=== PATIENT | male | born 1970 | race Caucasian/White ===

== ENCOUNTER 2018-11-26 09:34 | Outpatient (REF) | payer OTHER, SELFPAY ==
[2018-11-26 22:12] LABS: Cholesterol 267 mg/dL (50-200); HDL Cholesterol 75 mg/dL (40-60); LDL CHOLESTEROL 157 mg/dL (<100); Triglyceride 58 mg/dL (30-150)
== END 2018-11-26 09:54 ==
LOC: NCHCN 09:34
PROVIDERS: PCP Internal Medicine; Visit Provider Internal Medicine
DX: E78.5 Hyperlipidemia, unspecified (principal)
CPT/HCPCS: 80061; 83721

== ENCOUNTER 2020-09-01 16:10 | Outpatient (REF) | payer OTHER, SELFPAY ==
[2020-09-01 14:02] LABS: Anion Gap 8.7 mmol/L (3-11); BUN 19 mg/dL (7-18); CO2 26.3 mmol/L (21.0-32.0); CREATININE 1.1 mg/dL (0.70-1.30); Calcium 9.6 mg/dL (8.5-10.1); Calculated LDL 171 mg/dL (<100); Chloride 105 mmol/L (98-107); Cholesterol 271 mg/dL (<200); Glucose 90 mg/dL (74-106); HDL Cholesterol 87 mg/dL (40-60); Potassium 4.5 mmol/L (3.5-5.1); Sodium 140 mmol/L (136-145); Triglyceride 65 mg/dL (<150)
== END 2020-09-01 16:11 | disposition home or self-care (01) ==
LOC: NCHCN 16:10
PROVIDERS: PCP Internal Medicine; Visit Provider Internal Medicine
DX: E78.5 Hyperlipidemia, unspecified (principal); Z82.49 Family history of ischemic heart disease and other diseases of the circulatory system
CPT/HCPCS: 80048; 80061

== ENCOUNTER 2021-11-01 19:49 | Outpatient (REF) | payer OTHER, SELFPAY ==
[2021-11-01 21:51] LABS: Anion Gap 7.4 mmol/L (3-11); BUN 15 mg/dL (7-18); CO2 29.6 mmol/L (21.0-32.0); Calcium 9.1 mg/dL (8.5-10.1); Calculated LDL 183 mg/dL (<100); Chloride 104 mmol/L (98-107); Cholesterol 301 mg/dL (<200); Glucose 101 mg/dL (74-106); HDL Cholesterol 79 mg/dL (40-60); Potassium 4.1 mmol/L (3.5-5.1); Sodium 141 mmol/L (136-145); Triglyceride 197 mg/dL (<150)
== END 2021-11-01 19:50 | disposition home or self-care (01) ==
LOC: NCHCN 19:49
PROVIDERS: PCP Internal Medicine; Visit Provider Internal Medicine
DX: E78.5 Hyperlipidemia, unspecified (principal); R03.0 Elevated blood-pressure reading, without diagnosis of hypertension
CPT/HCPCS: 80048; 80061

== ENCOUNTER 2022-06-16 12:14 | Outpatient (REF) | payer OTHER, SELFPAY ==
[2022-06-16 14:19] LABS: ALT 30 U/L (16-63); AST 36 U/L (15-37); Alkaline Phosphatase 83 U/L (46-116); Anion Gap 7.2 mmol/L (3-11); BUN 17 mg/dL (7-18); Bilirubin, Total 0.3 mg/dL (0.2-1.0); CO2 28.8 mmol/L (21.0-32.0); Calcium 9.4 mg/dL (8.5-10.1); Calculated LDL 98 mg/dL (<100); Chloride 103 mmol/L (98-107); Cholesterol 199 mg/dL (<200); Estimated GFR 91.12 (mL/min/1.73m2); Glucose 97 mg/dL (74-106); HDL Cholesterol 88 mg/dL (40-60); Potassium 4.3 mmol/L (3.5-5.1); Sodium 139 mmol/L (136-145); Total Protein 7.4 g/dL (6.4-8.2); Triglyceride 66 mg/dL (<150)
[2022-06-16 21:32] LABS: PSA, Screening 0.8 ng/mL (<=3.5)
== END 2022-06-16 12:15 | disposition home or self-care (01) ==
LOC: NCHCN 12:14
PROVIDERS: PCP Internal Medicine; Visit Provider Family Medicine
DX: Z00.00 Encounter for general adult medical examination without abnormal findings (principal); Z12.5 Encounter for screening for malignant neoplasm of prostate; E78.5 Hyperlipidemia, unspecified; R03.0 Elevated blood-pressure reading, without diagnosis of hypertension
CPT/HCPCS: 80053; 80061; 84153

== ENCOUNTER 2023-02-21 09:51 | Outpatient (REF) | payer BC, SELFPAY ==
[2023-02-21 17:46] LABS: ALT 31 U/L (16-63); AST 36 U/L (15-37); Albumin 4.1 g/dL (3.4-5.0); Alkaline Phosphatase 79 U/L (46-116); Anion Gap 7.2 mmol/L (3-11); BUN 20 mg/dL (7-18); Bilirubin, Total 0.7 mg/dL (0.2-1.0); CO2 27.8 mmol/L (21.0-32.0); Calcium 9.5 mg/dL (8.5-10.1); Calculated LDL 92 mg/dL (<100); Chloride 101 mmol/L (98-107); Cholesterol 192 mg/dL (<200); Estimated GFR 90.56 (mL/min/1.73m2); Glucose 88 mg/dL (74-106); HDL Cholesterol 87 mg/dL (40-60); Potassium 4.2 mmol/L (3.5-5.1); Sodium 136 mmol/L (136-145); Total Protein 7.3 g/dL (6.4-8.2); Triglyceride 65 mg/dL (<150)
== END 2023-02-21 09:52 | disposition home or self-care (01) ==
LOC: NCHCN 09:51
PROVIDERS: PCP Internal Medicine; Visit Provider Family Medicine
DX: Z00.00 Encounter for general adult medical examination without abnormal findings (principal)
CPT/HCPCS: 80053; 80061

== ENCOUNTER 2024-04-10 17:25 | Outpatient (REF) | payer BC, SELFPAY ==
[2024-04-10 17:49] LABS: ALT 24 U/L (16-63); AST 34 U/L (15-37); Albumin 4.1 g/dL (3.4-5.0); Alkaline Phosphatase 87 U/L (46-116); Anion Gap 8.8 mmol/L (3-11); BUN 15 mg/dL (7-18); Bilirubin, Total 0.72 mg/dL (0.2-1.0); CO2 28.2 mmol/L (21.0-32.0); CREATININE 1.1 mg/dL (0.70-1.30); Calcium 9.9 mg/dL (8.5-10.1); Calculated LDL 94 mg/dL (<100); Chloride 106 mmol/L (98-107); Cholesterol 200 mg/dL (<200); Estimated GFR 80.27 (mL/min/1.73m2); Glucose 94 mg/dL (74-106); HDL Cholesterol 96 mg/dL (40-60); Potassium 4.3 mmol/L (3.5-5.1); Sodium 143 mmol/L (136-145); Total Protein 7.4 g/dL (6.4-8.2); Triglyceride 50 mg/dL (<150)
== END 2024-04-10 17:26 | disposition home or self-care (01) ==
LOC: NCHCN 17:25
PROVIDERS: PCP Internal Medicine; Visit Provider Family Medicine
DX: E78.5 Hyperlipidemia, unspecified (principal)
CPT/HCPCS: 80053; 80061